=== PATIENT | female | born 1985 | race American Indian/Alaskan Native ===

== ENCOUNTER 2017-06-21 06:00 | Day surgery (SDC) | payer BC ==
[2017-06-21] MEDS ORDERED: NACL BACTERIOSTATIC INFILTRATI ONE (06:31)
[2017-06-21] MEDS ORDERED: ANCEF/STERILE WATER 2 GM/20 ML IV NR (07:00)
--- NOTE | 2017-06-21 07:03 | Anesthesia Consultation ---
Anesthesia Consult and Med Hx Date of service: 06/21/17 - Airway Anesthetic Teeth Evaluation: Good ROM Head & Neck: Adequate Mental/Hyoid Distance: Adequate Mallampati Class: Class I Intubation Access Assessment: Good - Pulmonary Exam CTA: Yes - Cardiac Exam Cardiac Exam: RRR - Pre-Operative Health Status ASA Pre-Surgery Classification: ASA2 Proposed Anesthetic Plan: General - Pulmonary Hx Smoking: No Hx Sleep Apnea: No (KERRY PRE SCREEN LOW RISK) - Cardiovascular System Hx Hypertension: No - Central Nervous System Hx Back Pain: Yes - Other Systems Hx Cancer: No Hx Obesity: Yes (BMI 39.2)
--- NOTE | 2017-06-21 07:04 | Anesthesia Day of Surgery ---
Anesthesia Day of Surgery - Day of Surgery Patient Examined: Yes Patient H&P Reviewed: Yes Patient is NPO: Yes
[2017-06-21] MEDS ORDERED: MORPHINE IV PRN (07:05)
[2017-06-21] MEDS ORDERED: PERCOCET 5/325 PO PRN (07:05)
[2017-06-21] MEDS ORDERED: ZOFRAN IV PRN (07:05)
[2017-06-21] MEDS ORDERED: XYLOCAINE 1% 20 mL ONE (07:15)
[2017-06-21] MEDS ORDERED: MARCAINE 0.25% INFILTRATI ONE ×2 (07:15→07:35)
[2017-06-21] MEDS ORDERED: DILAUDID ONE (07:27)
[2017-06-21] MEDS ORDERED: DIPRIVAN 10 MG/ML IV ONE ×2 (07:27→07:45)
[2017-06-21] MEDS ORDERED: XYLOCAINE 2%/ EPI 1:200,000 INFILTRATI ONE (07:34)
[2017-06-21] MEDS ORDERED: XYLOCAINE 2%/EPI 1:100,000 INFILTRATI ONE (07:35)
[2017-06-21] MEDS ORDERED: XYLOCAINE MPF 2% ONE (07:54)
[2017-06-21] MEDS ORDERED: ZOFRAN IV NR (08:00)
[2017-06-21] MEDS ORDERED: LACTATED RINGERS 1,000 ML IV SCH (08:00)
[2017-06-21] MEDS ORDERED: PEPCID IV NR (08:00)
--- NOTE | 2017-06-21 08:20 | Discharge Summary ---
Short Stay Discharge Plan Activity: no restrictions Weight Bearing Status: Weight Bear as Tolerated Diet: regular Wound: keep clean and dry Follow up with: MARY LOU ANDREWS PA [Primary Care Provider] - 7 Days
--- NOTE | 2017-06-21 08:20 | Post Operative Note ---
Pre-op diagnosis: 1. Plantar fasciitis 2. Herniated muscle dorsal left foot Post-op diagnosis: same Findings: See operative note. Procedure: 1. Dorsal fascia release 2. Instep fasciotomy left side Anesthesia: MAC Surgeon: AMY LARSON Estimated blood loss: minimal Pathology: none Condition: stable Disposition: same day
--- NOTE | 2017-06-21 08:34 | Post Anesthesia Evaluation ---
- Post Anesthesia Evaluation Patient Participated: Yes Airway Patent: Yes Stable Respiratory Function: Yes Temp > 96.8F: Yes Pain Manageable: Yes Adequeate Hydration: Yes Anesthesia Complications: No
--- NOTE | 2017-06-21 08:58 | Operative Report ---
SURGEON: Ramon Shaver DPM CUSTODIAL OFFICER: None. PREOPERATIVE DIAGNOSES: 1. Herniated muscle dorsal left foot. 2. Plantar fasciitis, left foot. POSTOPERATIVE DIAGNOSES: 1. Herniated muscle dorsal left foot. 2. Plantar fasciitis, left foot. PROCEDURES: 1. Dorsal extensor fascia release. 2. In-step plantar fasciotomy, left foot. ANESTHESIA: Monitored anesthesia care with local anesthetic consisting of 2% lidocaine with epinephrine and 0.25% Marcaine plain 50:50 mixture x 10 mL. HEMOSTASIS: Epinephrine and local 1:200,000. ESTIMATED BLOOD LOSS: Less than 5 mL. MATERIALS: None. PATHOLOGY: None. COMPLICATIONS: None. OPERATIVE SUMMARY: On this date, the patient was deemed appropriate surgical candidate, brought to the operating room and placed on the operating table in normal supine position. Following induction of adequate intravenous anesthesia, the left foot was blocked around the dorsal extensor muscle belly as well as the in-step region. Left foot, ankle, and leg were prepped and draped in the usual sterile fashion and following procedures were then carried out. DORSAL FASCIOTOMY, LEFT FOOT: Attention was directed to the dorsal aspect of left foot over the extensor digitorum brevis muscle belly. A lazy-S incision was carried out in a relaxed skin tension lines over this area. Dissection was carried through the skin layer down to the level of superficial fascia with care to protect neurovascular structures. Electrocautery deemed necessary for surgical hemostasis. Once down to the level of the deep fascia, it was very obvious that there was a small herniation of the extensor muscle belly in this area extending for approximately 7 or 8 mm. It was very tense fascial boundary. Therefore, at this time, I used a Metzenbaum scissors and went ahead and completed the extensor fascia release over the entire length of the extensor brevis muscle belly. This allowed the muscle to freely move under this area. No other pathology was identified. The wound was flushed with normal saline and closure was carried out in a layered fashion with 4-0 absorbable suture in a running subcutaneous fashion followed by 5-0 absorbable suture in a running intradermal fashion. IN-STEP PLANTAR FASCIOTOMY, LEFT FOOT: Attention was then directed to the plantar medial in-step on the left side where a 2.5 cm incision was placed in this area just distal to the fat pad. Dissection was carried through the skin down to the level of superficial fascia with the care to protect neurovascular structures. We used electrocautery deemed necessary for surgical hemostasis. Dissection was carried through this layer down to level of the plantar fascia. Plantar fascia was noted to be significantly tight. At this time, retractors were placed anterior, posterior, medial, and lateral, and I went ahead and completed a transverse transection of the medial and central bands of the plantar fascia. A small section fascia was then removed from this area. Once the fascia was released, I went ahead and flushed with normal saline and closure was carried out with 3-0 nylon suture in a simple and mattress fashion and closed the skin layer. Dressings were then applied to both dorsal and plantar wounds consisting of 4 x 4s, Bria dressing as well as an John wrap. The patient tolerated the above procedures and anesthesia well without complications. Vital signs stable throughout. She will be discharged with home going instructions, keep dressings clean and dry, and follow up in the office in 1 week. JOB# [id number] NAIMA/ALEN
[2017-06-21 10:32] VITALS: BP 96/62
== END 2017-06-21 10:23 | disposition home or self-care (01) ==
LOC: OR 06:00
PROVIDERS: ATTEND Podiatrist Foot & Ankle Surgery
DX: M72.2 Plantar fascial fibromatosis (principal); M62.89 Other specified disorders of muscle; E66.9 Obesity, unspecified; Z68.39 Body mass index [BMI] 39.0-39.9, adult; Z88.8 Allergy status to other drugs, medicaments and biological substances
CPT/HCPCS: 28008; 28899; 81025; J0690; J1170; J2270; J2704; J7120